=== PATIENT | female | born 1995 | race Caucasian/White ===

== ENCOUNTER 2020-12-17 20:02 | Emergency (ER) | payer SELFPAY ==
[~2020-12-17] VITALS: Ht 152.4 cm; Wt 43.1 kg
[2020-12-17 20:05] VITALS: BP 125/72
[2020-12-17 20:43] LABS: Basophils # (auto) 0 10 ^3/uL (0-0.2); Basophils % (auto) 0.4 % (0.0-2.0); Eosinophils # (auto) 0 10 ^3/uL (0-0.8); Eosinophils % (auto) 0.4 % (0.0-7.0); Hematocrit 42.7 % (36.0-46.0); Hemoglobin 14.7 g/dL (12.2-16.2); Lymphocytes # (auto) 1.6 10 ^3/uL (0.4-5.4); Lymphocytes % (auto) 15.9 % (10.0-50.0); Mean Corpuscular Hemoglobin 31.7 pg (28.0-32.0); Mean Corpuscular Hgb Conc. 34.5 g/dL (32.0-36.0); Monocytes # (auto) 0.7 10 ^3/uL (0-1.3); Monocytes % (auto) 6.4 % (0.0-12.0); Neutrophils # (auto) 7.9 10 ^3/uL (1.6-8.6); Neutrophils % (auto) 76.9 % (37.0-80.0); Red Blood Cells 4.64 10^6/uL (4.0-5.20); White Blood Cell 10.3 10^3/uL (4.4-10.8)
[2020-12-17 20:49] LABS: Urine Bacteria FEW /hpf (None Seen); Urine Blood Negative /uL (Negative); Urine Specific Gravity 1.021 (1.001-1.035); Urine WBC 1 /hpf (0 - 5)
[2020-12-17 21:01] LABS: Albumin 3.8 g/dL (3.4-5.0); Calcium 8.3 mg/dL (8.5-10.1); Potassium 3.5 mmol/L (3.5-5.1)
[2020-12-17 21:09] LABS: BUN/Creatinine Ratio 15.6; Bilirubin, Total 0.4 mg/dL (0.2-1.0); Total Protein 7.3 g/dL (6.4-8.2)
[2020-12-17] MEDS ORDERED: ACETAMINOPHEN 325 MG TAB PO ONE (23:15)
== END 2020-12-18 00:19 | disposition left against medical advice (07) ==
LOC: ER 20:02
DX: O26.891 Other specified pregnancy related conditions, first trimester (principal); O46.91 Antepartum hemorrhage, unspecified, first trimester; R10.9 Unspecified abdominal pain; Z3A.01 Less than 8 weeks gestation of pregnancy; Z53.29 Procedure and treatment not carried out because of patient's decision for other reasons
CPT/HCPCS: 36415; 76801; 76817; 80053; 81001; 84702; 85025; 86850; 86900; 86901

== ENCOUNTER 2021-01-21 11:51 | Emergency (ER) | payer SELFPAY ==
[~2021-01-21] VITALS: Ht 154.9 cm; Wt 44.0 kg
[2021-01-21 13:09] LABS: Urine Bacteria NONE SEEN /hpf (None Seen); Urine Blood 3+ /uL (Negative); Urine Hyaline Cast FEW /lpf (0 - 2); Urine Mucus FEW (None Seen); Urine WBC 357 /hpf (0 - 5); Urine WBC Clumps PRESENT /hpf (None Seen)
[2021-01-21 13:18] LABS: Basophils # (auto) 0 10 ^3/uL (0-0.2); Basophils % (auto) 0.4 % (0.0-2.0); Eosinophils # (auto) 0.1 10 ^3/uL (0-0.8); Eosinophils % (auto) 1.1 % (0.0-7.0); Lymphocytes # (auto) 1.4 10 ^3/uL (0.4-5.4); Lymphocytes % (auto) 24.4 % (10.0-50.0); Mean Corpuscular Hemoglobin 31.3 pg (28.0-32.0); Mean Corpuscular Hgb Conc. 33.4 g/dL (32.0-36.0); Mean Corpuscular Volume 93.8 fL (80.0-100.0); Monocytes # (auto) 0.4 10 ^3/uL (0-1.3); Monocytes % (auto) 6.6 % (0.0-12.0); Neutrophils # (auto) 3.8 10 ^3/uL (1.6-8.6); Neutrophils % (auto) 67.5 % (37.0-80.0); Red Blood Cells 4.48 10^6/uL (4.0-5.20); Red Cell Distribution Width 13.4 % (11.8-14.3); White Blood Cell 5.6 10^3/uL (4.4-10.8)
[2021-01-21 13:36] LABS: BUN/Creatinine Ratio 12.3; Calcium 9.1 mg/dL (8.5-10.1); Potassium 4.3 mmol/L (3.5-5.1)
[2021-01-21 13:43] VITALS: BP 105/61
[2021-01-21] MEDS ORDERED: cefTRIAXone SOD 1,000 MG VL IM ONE (13:45)
[2021-01-21] MEDS ORDERED: NAP500T GT (13:59)
[2021-01-21] MEDS ORDERED: CIPR-173 PO (13:59)
== END 2021-01-21 14:35 | disposition home or self-care (01) ==
LOC: ER 11:51
DX: O03.9 Complete or unspecified spontaneous abortion without complication (principal); O46.91 Antepartum hemorrhage, unspecified, first trimester; Z3A.01 Less than 8 weeks gestation of pregnancy
CPT/HCPCS: 36415; 76856; 80048; 81001; 84702; 85025; 96372; 99284; J0696

== ENCOUNTER 2021-02-20 09:23 | Emergency (ER) | payer BC, OTHER ==
[~2021-02-20] VITALS: Ht 152.4 cm; Wt 45.4 kg
[~2021-02-20 09:23] MED LIST: CIPR-173 PO; NAP500T GT
[2021-02-20 09:56] VITALS: BP 99/72
[2021-02-20 10:14] LABS: Urine Bacteria FEW /hpf (None Seen); Urine Blood Negative /uL (Negative); Urine Mucus FEW (None Seen); Urine Specific Gravity 1.026 (1.001-1.035); Urine WBC 5 /hpf (0 - 5)
[2021-02-20] MEDS ORDERED: CEPH500T PO (10:35)
== END 2021-02-20 10:51 | disposition home or self-care (01) ==
LOC: ER 09:23
DX: N39.0 Urinary tract infection, site not specified (principal); F12.10 Cannabis abuse, uncomplicated
CPT/HCPCS: 81001; 81025

== ENCOUNTER 2021-06-20 19:44 | Emergency (ER) | payer BC ==
[~2021-06-20] VITALS: Ht 152.4 cm; Wt 49.4 kg
[~2021-06-20 19:44] MED LIST changes: +CEPH500T PO
[2021-06-20 21:19] LABS: Basophils # (auto) 0 10 ^3/uL (0-0.2); Basophils % (auto) 0.4 % (0.0-2.0); Eosinophils # (auto) 0 10 ^3/uL (0-0.8); Eosinophils % (auto) 0.3 % (0.0-7.0); Hematocrit 39.8 % (36.0-46.0); Hemoglobin 13.8 g/dL (12.2-16.2); Lymphocytes # (auto) 2.3 10 ^3/uL (0.4-5.4); Lymphocytes % (auto) 21.5 % (10.0-50.0); Mean Corpuscular Hemoglobin 31.4 pg (28.0-32.0); Mean Corpuscular Hgb Conc. 34.6 g/dL (32.0-36.0); Mean Corpuscular Volume 90.7 fL (80.0-100.0); Monocytes # (auto) 0.7 10 ^3/uL (0-1.3); Monocytes % (auto) 6.5 % (0.0-12.0); Neutrophils # (auto) 7.5 10 ^3/uL (1.6-8.6); Neutrophils % (auto) 71.3 % (37.0-80.0); Nucleated Red Blood Cells % 0.1 %; Red Blood Cells 4.38 10^6/uL (4.0-5.20); Red Cell Distribution Width 13.3 % (11.8-14.3); White Blood Cell 10.5 10^3/uL (4.4-10.8)
[2021-06-20 21:34] LABS: Albumin 3.7 g/dL (3.4-5.0); Calcium 8.7 mg/dL (8.5-10.1); Potassium 3.5 mmol/L (3.5-5.1)
[2021-06-20 21:37] LABS: BUN/Creatinine Ratio 19.1; Bilirubin, Total 0.7 mg/dL (0.2-1.0); Total Protein 7.1 g/dL (6.4-8.2)
[2021-06-21] MEDS ORDERED: HYDROcodone-ACET 5/325MG TAB PO ONE (00:15)
[2021-06-21 03:36] LABS: Alcohol, Urine < 3.0 mg/dL (0-10); Amphetamine Screen, Urine NEGATIVE (NEGATIVE); Barbiturate Scree,Urine NEGATIVE (NEGATIVE); Benzodiazephine Screen, Urine NEGATIVE (NEGATIVE); Cocaine Screen, Urine NEGATIVE (NEGATIVE); Opiate Scree,Urine POSITIVE (NEGATIVE); Phencyclidine Screen, Urine NEGATIVE (NEGATIVE)
[2021-06-21 03:43] LABS: Cannabinoid Screen, Urine POSITIVE (NEGATIVE)
[2021-06-21 04:05] LABS: Urine Bacteria FEW /hpf (None Seen); Urine Blood Negative /uL (Negative); Urine Hyaline Cast FEW /lpf (0 - 2); Urine Mucus FEW (None Seen); Urine Specific Gravity 1.032 (1.001-1.035); Urine WBC 5 /hpf (0 - 5)
[2021-06-21] MEDS ORDERED: ALUM & MAG HYDROX-SIMETH LIQ(MAALOX) 30 ML PO ONE (04:30)
[2021-06-21] MEDS ORDERED: PANT40TA2 PO (04:55)
[2021-06-21] MEDS ORDERED: FAMO-161 PO (04:55)
[2021-06-21 05:09] VITALS: BP 112/68
== END 2021-06-21 05:10 | disposition home or self-care (01) ==
LOC: ER 19:49
DX: K29.70 Gastritis, unspecified, without bleeding (principal); K27.9 Peptic ulcer, site unspecified, unspecified as acute or chronic, without hemorrhage or perforation; F12.10 Cannabis abuse, uncomplicated; Z87.442 Personal history of urinary calculi
CPT/HCPCS: 36415; 74176; 80053; 80307; 81001; 84702; 85025